=== PATIENT | female | born 1995 | race Caucasian/White ===

== ENCOUNTER 2021-03-19 10:03 | Emergency (ER) | payer OTHER, SELFPAY ==
--- NOTE | 2021-03-19 10:15 | ED.URI ---
HPI - URI/Sore Throat General Chief Complaint: Upper Respiratory Infection Stated Complaint: Sore Throat,Runny Nose Time Seen by Provider: 03/19/21 10:16 Source: patient and RN notes reviewed History of Present Illness HPI Narrative: Patient is a 25-year-old female who presents the urgent care with complaints of sore throat and runny nose. States that she had some sinus issues as of last Thursday and woke up with a sore throat this morning. Patient denies any fever, chills, nausea, vomiting. Patient denies of any known exposures. Patient has been using Chloraseptic spray and Tylenol for symptom relief. No other complaints. No acute distress noted. Patient read the plan of care. Some parts of this dictation were generated by voice recognition software and may contain typographical and/or grammatical inaccuracies. Related Data Home Medications Medication Instructions Recorded Confirmed insulin glargine U-300 conc 8 unit SUBCUT DAILY 02/01/19 02/01/19 [Toujeo Max U-300 SoloStar] buspirone 5 mg BID 03/19/21 03/19/21 insulin lispro [Humalog KwikPen 1 unit SUBCUT DIRECTED 03/19/21 03/19/21 Insulin] spironolactone 100 mg DAILY 03/19/21 03/19/21 verapamil 40 mg BID 03/19/21 03/19/21 Allergies Allergy/AdvReac Type Severity Reaction Status Date / Time Corticosteroids AdvReac Nausea Verified 03/19/21 10:31 (Glucocorticoids) Review of Systems Review of Systems: CONSTITUTIONAL: Denies fever, chills, or sweats. EYES: Denies visual changes, redness, or discharge. ENT: Reports of rhinorrhea and sore throat CARDIOVASCULAR: Denies chest pain, palpitations, or edema. RESPIRATORY: Denies cough or dyspnea. GASTROINTESTINAL: Denies abdominal pain, nausea, vomiting, or diarrhea. GENITOURINARY: Denies dysuria or hematuria. SKIN: Denies rash or itching. MUSCULOSKELETAL: Denies back pain, joint pain, or myalgia. NEUROLOGIC: Denies headache, numbness, or weakness. All other systems reviewed are negative, except as documented in HPI. [facility] Past Medical History Medical History (Updated 03/19/21 @ 10:47 by SOPHIE Skelton) Type 1 diabetes mellitus Social History Social History (Updated 02/01/19 @ 09:11 by Ana Wade PA-C) Smoking status: Never smoker Substance use: never Gender identity (if verbalized by the patient): Female Comments At the time of my signature, I reviewed and agree with the nursing past medical, surgical, social, and family history. There is no relevant family history pertinent to the patient complaint. Exam Narrative: GENERAL: This is a well-nourished, well-developed patient, in no apparent distress. HEAD: normocephalic, atraumatic. EYES: PERRL. Sclera clear/white. Vision is grossly intact. EARS: External ears normal, auditory canals clear and without drainage, TMs normal without perforation. Hearing grossly intact. NOSE: External nose normal with no obvious nasal discharge, nares without redness, no rhinorrhea. THROAT: Mucous membranes moist. Mild bilateral tonsillar edema without erythema or exudate. Mild postnasal drainage. NECK: Neck supple, non-tender mild left submandibular lymphadenopathy CARDIOVASCULAR: Regular rate and rhythm without murmurs, gallops, or rubs. RESPIRATORY: Clear to auscultation. Breath sounds equal bilaterally. No wheezes, rales, or rhonchi. SKIN: warm, intact with no suspicious lesions or rash, good texture and turgor. NEURO: awake, alert, and oriented to person, place and time. There were no obvious focal neurologic abnormalities. EXTREMITIES: No clubbing, cyanosis, or edema. Course Vital Signs Vital signs: Vital Signs Temperature 97.9 F 03/19/21 10:26 Pulse Rate 109 H 03/19/21 10:26 Respiratory Rate 18 03/19/21 10:26 Blood Pressure 122/81 03/19/21 10:26 Pulse Oximetry 99 03/19/21 10:26 Temperature 97.9 F 03/19/21 10:26 Pulse Rate 109 H 03/19/21 10:26 Respiratory Rate 18 03/19/21 10:26 Blood Pressure 122/81
[2021-03-19 10:26] VITALS: BP 122/81; PULSE 109; RESP 18; TEMP 36.6; O2SAT 99
== END 2021-03-19 10:50 | disposition home or self-care (01) ==
PROVIDERS: Emergency Provider Nurse Practitioner Family
DX: J02.9 Acute pharyngitis, unspecified (principal); E10.9 Type 1 diabetes mellitus without complications
CPT/HCPCS: 87081; 87880; 99213; G0463